=== PATIENT | male | born 1995 | race African-American/Black ===

== ENCOUNTER 2019-10-15 00:17 | Emergency (ER) | payer MEDICAID, OTHER ==
[~2019-10-15] VITALS: Ht 177.8 cm; Wt 49.9 kg
[2019-10-15 03:05] LABS: Basophils # (auto) 0.1 uL; Basophils % (auto) 0.7 % (0.0-2.0); Eosinophils # (auto) 0 uL; Eosinophils % (auto) 0.3 % (0.0-7.0); Hematocrit 44.4 % (41.0-53.0); Hemoglobin 15.4 g/dL (13.5-17.5); Lymphocytes # (auto) 2.1 uL; Lymphocytes % (auto) 25.2 % (10.0-50.0); Mean Corpuscular Hemoglobin 30.6 pg (28.0-32.0); Mean Corpuscular Hgb Conc. 34.6 g/dL (32.0-36.0); Mean Corpuscular Volume 88.3 fL (80.0-100.0); Monocytes # (auto) 0.6 uL; Monocytes % (auto) 6.7 % (0.0-12.0); Neutrophils # (auto) 5.7 uL; Neutrophils % (auto) 67.1 % (37.0-80.0); Nucleated Red Blood Cells % 0.1 %; Platelet Count (auto) 265 10^3/uL (140-450); Red Blood Cells 5.03 10^6/uL (4.5-5.90); Red Cell Distribution Width 12.9 % (11.8-14.3); White Blood Cell 8.5 10^3/uL (4.4-10.8)
[2019-10-15 03:27] LABS: Alanine Aminotransferase 17 U/L (16-61); Albumin 4.5 g/dL (3.4-5.0); Anion Gap 9 (5-15); Aspartate Aminotransferase 22 U/L (15-37); BUN/Creatinine Ratio 12.7; Blood Alcohol < 3.0 mg/dL (0-5); Blood Urea Nitrogen 13 mg/dL (7-18); Calcium 9.2 mg/dL (8.5-10.1); Carbon Dioxide 23 mmol/L (21-32); Chloride 105 mmol/L (98-107); GFR African American 115 mL/min; GFR Non-African American 95 mL/min; Glucose 80 mg/dL (74-106); Magnesium 2.3 mg/dL (1.6-2.6); Potassium 3.7 mmol/L (3.5-5.1); Salicylate < 1.7 mg/dL (2.8-20.0); Sodium 137 mmol/L (136-145)
[2019-10-15 03:30] LABS: Alkaline Phosphatase 86 U/L (45-117); Bilirubin, Total 0.6 mg/dL (0.2-1.0); Total Protein 7.8 g/dL (6.4-8.2)
[2019-10-15 03:38] LABS: Acetaminophen < 2.0 ug/mL (10-30)
[2019-10-15] MEDS ORDERED: PANTOPRAZOLE 40 MG TAB PO ONE (06:45)
[2019-10-15 09:30] LABS: Urine Bacteria NONE SEEN /hpf (None Seen); Urine Blood Negative /uL (Negative); Urine Specific Gravity 1.009 (1.001-1.035); Urine WBC 3 /hpf (0 - 3)
[2019-10-15 09:31] LABS: Alcohol, Urine < 3.0 mg/dL (0-5); Amphetamine Screen, Urine NEGATIVE (NEGATIVE); Barbiturate Scree,Urine NEGATIVE (NEGATIVE); Benzodiazephine Screen, Urine NEGATIVE (NEGATIVE); Cannabinoid Screen, Urine NEGATIVE (NEGATIVE); Cocaine Screen, Urine NEGATIVE (NEGATIVE); Opiate Scree,Urine NEGATIVE (NEGATIVE); Phencyclidine Screen, Urine NEGATIVE (NEGATIVE)
[2019-10-15 11:07] VITALS: BP 117/71
== END 2019-10-15 11:08 | disposition home or self-care (01) ==
LOC: EDBD 00:17 → ER 00:19
DX: G43.909 Migraine, unspecified, not intractable, without status migrainosus (principal); T39.311A Poisoning by propionic acid derivatives, accidental (unintentional), initial encounter; Y92.89 Other specified places as the place of occurrence of the external cause
CPT/HCPCS: 36415; 70450; 71046; 80053; 80307; 80320; 80329; 81001; 83735; 85025; 93005

== ENCOUNTER 2024-08-18 14:11 | Emergency (ER) | payer MEDICAID ==
[~2024-08-18] VITALS: Ht 165.1 cm; Wt 59.4 kg
[2024-08-18 16:04] VITALS: BP 126/70; PULSE 72; RESP 14; TEMP 98.3; O2SAT 100
[2024-08-18] MEDS: PENICILLIN G BENZ 1,200,000 UNITS/2 ML SYRG IM ONE (16:18)
== END 2024-08-18 16:49 | disposition home or self-care (01) ==
LOC: ER 14:15
DX: A53.9 Syphilis, unspecified (principal); Z79.899 Other long term (current) drug therapy
CPT/HCPCS: 96372; 99283; J0561

== ENCOUNTER 2025-01-24 12:58 | Emergency (ER) | payer MEDICAID ==
[~2025-01-24] VITALS: Ht 154.9 cm; Wt 135.0 kg
[2025-01-24 14:56] VITALS: BP 125/77; PULSE 77; RESP 16; TEMP 98.1; O2SAT 98
[2025-01-24] MEDS: PENICILLIN G BENZ 1,200,000 UNITS/2 ML SYRG IM ONE (15:34)
--- NOTE | 2025-01-24 15:45 | ED.PDOC ---
History of Present Illness HPI Comments 29 year old presents for positive syphillis test today. Labs performed January 14. Advised to come in for tx. Denies any symptoms. Chief Complaint: Abnormal LAB's Time Seen by MD: 14:03 Primary Care Provider: None Reviewed Notes: Nurses Notes, Medications, Allergies Allergies: Coded Allergies: NO KNOWN ALLERGIES (Unverified , 01/12/12) Information Source: Patient Mode of Arrival: Ambulatory Past Medical History PAST MEDICAL HISTORY: Denies Surgical History: Denies all surgeries Family History Family History: No family hx of [place] Social History Smoker: Non-Smoker Alcohol: Denies ETOH Use Drugs: Denies Drug Use Lives In: Home All Other Systems: Reviewed and Negative (per hpi) Physical Exam General Appearance: No Apparent Distress, Normal HEENT: Normal ENT Inspection, Pharynx Normal, TMs Normal Neck: Full Range of Motion, Non-Tender, Normal, Normal Inspection Respiratory: Chest Non-Tender, Lungs Clear, No Accessory Muscle Use, No Respiratory Distress, Normal Breath Sounds Cardiovascular: No Edema, No JVD, No Murmur, No Gallop, Normal Peripheral Pulses, Regular Rate/Rhythm Breast Exam: Deferred Gastrointestinal: No Organomegaly, Non Tender, No Pulsatile Mass, Normal Bowel Sounds, Soft Genitalia: Deferred Pelvic: Deferred Rectal: Deferred Extremities: No calf tenderness, Normal capillary refill, Normal inspection, Normal range of motion, Non-tender, No pedal edema Musculoskeletal : Apperance: Normal Neurologic: Alert, air box tester II-XII nml as Tested, No Motor Deficits, Normal Affect, Normal Mood, No Sensory Deficits Cerebellar Function: Normal Reflexes: Normal Skin: Dry, Normal Color, Warm Lymphatic: No Adenopathy Was a procedure done? Was a procedure done?: No Differential Dx Considerations may include: syphilis X-Ray, Labs, Meds, VS Vital Signs Date Time Temp Pulse Resp B/P (MAP) Pulse Ox O2 Delivery O2 Flow Rate FiO2 01/24/25 14:56 77 16 98 Room Air 01/24/25 14:56 98.1 77 16 125/77 (93) 98 98.1 01/24/25 13:21 98.1 77 16 125/77 (93) 98 98.1 Current Medications Medications (Trade) Dose Ordered Sig/Andrea Route Start Time Stop Time Status Last Admin Penicillin G Benzathine (Bicillin L-A) 2,400,000 units ONCE ONCE IM 3/18/25 15:30 01/24/25 15:31 DC 01/24/25 15:34 X-Ray, Labs, Meds, VS Comment Return in 1 wk Sooner prn Abstain from sex until cleared Time of 1ST Reevaluation: 15:30 Reevaluation 1ST: Improved Patient Education/Counseling: Diagnosis, Treatment Family Education/Counseling: Diagnosis, Treatment Departure 1 Departure Time of Disposition: 15:45 Impression: Primary Impression: Syphilis Disposition: 01 HOME / SELF CARE / HOMELESS Condition: Stable Additional Instructions: Discharge Note: Drink plenty of fluids. Follow up with your primary Dr. If your condition becomes worse call and follow up with your primary Dr. for instructions or return to the ER if needed. Thank you for visiting [facility]. Discharged With: Self Critical Care Note Critical Care Time?: No Stability Stability form required: No Heart Score Heart Score: Heart Score Response (Comments) Value History N/A 0 EKG N/A 0 Age N/A 0 Risk Factors N/A 0 Troponin N/A 0 Total 0 YOSEF BENSON NP Jan 24, 2025 15:45
== END 2025-01-24 15:49 | disposition home or self-care (01) ==
LOC: ER 12:58
DX: A53.9 Syphilis, unspecified (principal)
CPT/HCPCS: 96372; 99283; J0561